=== PATIENT | female | born 1990 | race Caucasian/White ===

== ENCOUNTER 2016-09-18 09:31 | Inpatient (IN) | payer BC ==
[~2016-09-18] VITALS: Ht 160 cm; Wt 64.9 kg
[~2016-09-18 09:31] MED LIST: DPPI400; [UNRECOGNIZED DRUG - OTHER] IM
[2016-09-18 10:41] VITALS: Ht 160 cm; Wt 64.9 kg
[2016-09-18] MEDS ORDERED: PRENTAB26 PO (10:44)
[2016-09-18] MEDS ORDERED: LACTATED RINGER'S 1000ML 1,000 ML IV SCH ×2 (11:00→12:58)
[2016-09-18 11:04] LABS: HEMATOCRIT 36.5 % (37-47); MEAN CELL VOLUME 91.7 fL (80-100); MEAN CORPUSCULAR HEMOGLOBIN 30.7 pg (25-34); MEAN PLATELET VOLUME 10.7 fL (7.4-10.4); PLATELET COUNT 465 K/uL (130-400); RED BLOOD COUNT 3.98 M/uL (4.2-5.4); WHITE BLOOD COUNT 17.29 K/uL (4.8-10.8)
[2016-09-18 11:11] LABS: MEAN CORPUSCULAR HGB CONC 33.4 g/dl (32-36)
[2016-09-18 11:23] LABS: CREATININE, URINE < 13.0 mg/dl; URINE TOTAL PROTEIN 22.5 mg/dl (0-11.9)
[2016-09-18 11:24] LABS: BUN/CREATININE RATIO 12.3 (10-20); CALCIUM 9.1 mg/dl (8.5-10.1); CREATININE 0.6 mg/dl (0.60-1.20); POTASSIUM 4.1 mmol/L (3.5-5.1); URIC ACID 4.2 mg/dl (2.6-7.2)
[2016-09-18 11:30] LABS: ALB/GLOB RATIO 0.8 (0.9-2)
[2016-09-18] MEDS ORDERED: LACTATED RINGER'S 1000ML 1,000 ML IV PRN (12:58)
[2016-09-18] MEDS ORDERED: MISOPROSTOLTAB 50 MCG TAB PO ONE (13:30)
--- NOTE | 2016-09-18 15:16 | HISTORY & PHYSICAL EXAMINATION ---
DATE OF ADMISSION: 09/18/2016 HISTORY OF PRESENT ILLNESS: The patient is a 26-year-old G1, P0, gestational age 39 and 3 weeks, due date 09/22/2016. The patient has had an unremarkable course until today when she was seen for routine care. She had elevated blood pressures of 140s/90's x2. She was therefore sent to labor and delivery for evaluation. On arrival to labor and delivery, she had no shortness of breath, no chills, no fever, no rupture of membranes. She denied any headache or right upper quadrant pain. On arrival initial blood pressures were in the 170s/100s, all in the elevated range. [facility] labs were drawn including CBC and complete chemistry. Hemoglobin was 12.2, hematocrit was 36.5, platelets were 465,000. Complete chemistry showed AST 18, ALT of 22, LDH however was elevated 345. Uric acid was 4.2. Nonstress test was reactive. Vaginal exam is fingertip, 50% and posterior. Bedside ultrasound shows cephalic presentation. I have discussed the above findings with the patient. In the presence of several elevated blood pressures and proteinuria the diagnosis despite normal LFTs is mild preeclampsia. The patient is presently 39 weeks, there is therefore no benefit to continuing with this . I had therefore recommended labor induction. We discussed risks and benefits including the increased risks of section from the induction. We have also discussed the potential risks of poor outcome if she chooses to continue with the including worsening of preeclampsia to the severe range. We have also discussed eclampsia as well as poor outcome for the infant. The patient has agreed to proceed with induction. Plan therefore is to admit patient and start induction of labor. COURSE: Has been unremarkable up to today's visit. LABS: Blood type O positive, antibody negative, rubella immune, GBS negative, VDRL nonreactive. PAST MEDICAL HISTORY: The patient has history of chronic sinusitis and endometritis. PAST SURGICAL HISTORY: None. SOCIAL HISTORY: The patient is a smoker. Denies drug or alcohol use. ALLERGIES: THE PATIENT IS ALLERGIC TO HYDROCODONE AND BACTRIM. FAMILY HISTORY: Noncontributory. 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 PHYSICAL EXAMINATION: GENERAL: Well-developed, well-nourished white female in no acute distress. HEART: S1, S2, regular rhythm and rate. LUNGS: Clear to auscultation bilaterally. ABDOMEN: Gravid, nontender, nondistended. PELVIC EXAMINATION: Fingertip, 50% and -2. Bedside ultrasound shows cephalic presentation. EXTREMITIES: No cyanosis, clubbing or edema. ASSESSMENT AND PLAN: Mild preeclampsia at 39 weeks. Plan is to admit patient and start labor induction. MTDD
[2016-09-18] MEDS ORDERED: MISOPROSTOLTAB 50 MCG TAB PO SCH (19:30)
[2016-09-19] MEDS ORDERED: MISOPROSTOLTAB 50 MCG TAB PO ONE (01:00)
[2016-09-19] MEDS ORDERED: LACTATED RINGER'S 1000ML 500 ML IV PRN ×2 (03:43→05:30)
[2016-09-19] MEDS ORDERED: OXYTOCIN 30 UNITS/500ML NSS IV PRN ×2 (03:45→10:15)
[2016-09-19] MEDS ORDERED: BUPIVACAINE 0.25% 30 ML VIAL ONE (04:30)
[2016-09-19] MEDS ORDERED: EpHEDrine SULFATE INJ 50 MG/ML AMP ONE (04:31)
[2016-09-19] MEDS ORDERED: FENTANYL CITRATE INJ 50 MCG/1 ML 2 ML VIAL ONE (04:31)
[2016-09-19] MEDS ORDERED: FENTANYL 2MCG/ML ROPIV 1.25MG/ML 100ML BAG EPI ONE (04:31)
[2016-09-19] MEDS ORDERED: FENTANYL 2MCG/ML ROPIV 1.25MG/ML 100ML BAG EPI PRN (05:30)
[2016-09-19] MEDS ORDERED: EpHEDrine SULFATE INJ 50 MG/ML AMP IV PRN (05:30)
[2016-09-19] MEDS ORDERED: DiphenhydrAMINE HCL 50 MG/ML VIAL IV PRN (05:30)
[2016-09-19] MEDS ORDERED: NALBUPHINE HCL INJ 10 MG/ML AMP IV PRN (05:30)
[2016-09-19] MEDS ORDERED: ONDANSETRON INJ 2 MG/ML 2 ML VIAL IV PRN (05:30)
[2016-09-19] MEDS ORDERED: NALOXONE HCL INJ 1 MG in SODIUM CHLORIDE 0.9% 1000ML 1,000 ML IV PRN (05:30)
[2016-09-19] MEDS ORDERED: NALOXONE HCL INJ 0.4 MG/1 ML VIAL/CARP IV PRN (05:30)
[2016-09-19] MEDS ORDERED: PROMETHAZINE HCL INJ 6.25 MG in SODIUM CHLORIDE 0.9% 50ML 50 ML IV PRN (05:30)
[2016-09-19 05:42] LABS: HEMATOCRIT 34.7 % (37-47); MEAN CELL VOLUME 92.5 fL (80-100); MEAN CORPUSCULAR HEMOGLOBIN 31.5 pg (25-34); MEAN PLATELET VOLUME 11.2 fL (7.4-10.4); PLATELET COUNT 448 K/uL (130-400); RED BLOOD COUNT 3.75 M/uL (4.2-5.4); WHITE BLOOD COUNT 18.08 K/uL (4.8-10.8)
[2016-09-19 06:11] LABS: BUN/CREATININE RATIO 14.1 (10-20); CALCIUM 8.6 mg/dl (8.5-10.1); CREATININE 0.58 mg/dl (0.60-1.20); POTASSIUM 4.1 mmol/L (3.5-5.1)
[2016-09-19 06:13] LABS: ALB/GLOB RATIO 0.8 (0.9-2)
[2016-09-19] MEDS ORDERED: MISOPROSTOL 200 MCG TAB ONE (07:44)
--- NOTE | 2016-09-19 08:04 | Anesthesia Procedure Note ---
Anesthesia Epidural Removal Nt Date & Time September 19, 2016 at 08:05 Notes Mental Status: alert / awake / arousable, participated in evaluation Nausea / Vomiting: adequately controlled Pain: adequately controlled Airway Patency, RR, SpO2: stable & adequate BP & HR: stable & adequate Hydration State: stable & adequate Neuraxial Anesthesia: was administered Anesthetic Complications: no major complications apparent, pt satisfied with anesthetic care Epidural: removed without complications, with tip intact
[2016-09-19 09:55] VITALS: BP 151/90; PULSE 63; TEMP 36.5
[2016-09-19] MEDS ORDERED: LACTATED RINGER'S 1000ML 1,000 ML IV SCH (10:03)
[2016-09-19] MEDS ORDERED: IBUPROFEN 600 MG TAB ONE (10:03)
[2016-09-19] MEDS ORDERED: BENZOCAINE 20% AER SPR 82.5 GM CAN EXT PRN (10:15)
[2016-09-19] MEDS ORDERED: HYDROCORTISONE ACETATE 25 MG SUPP PR PRN (10:15)
[2016-09-19] MEDS ORDERED: LANOLIN OINT EXT PRN ×2 (10:15)
[2016-09-19] MEDS ORDERED: SUPERCREAM 0.870 % 15GM JAR EXT PRN (10:15)
[2016-09-19] MEDS ORDERED: DIPHTHERIA/TETANUS/PERTUSSIS 0.5 ML SYR/VIAL IM. ONE (10:15)
[2016-09-19] MEDS ORDERED: MEASLES, MUMPS & RUBELLA VIRUS VIAL SQ. ONE (10:15)
[2016-09-19] MEDS ORDERED: MISOPROSTOL 200 MCG TAB PR ONE (10:15)
[2016-09-19 12:05] VITALS: BP 160/86; PULSE 57; TEMP 37.2
[2016-09-19] MEDS: ACETAMINOPHEN 325 MG TAB PO PRN ×2 (12:10→19:40)
[2016-09-19 15:20] VITALS: BP 151/96; PULSE 58; TEMP 37.1
[2016-09-19] MEDS: IBUPROFEN 600 MG TAB PO PRN ×2 (15:36→23:49)
[2016-09-19 18:45] VITALS: BP 193/104; PULSE 58; TEMP 37.4
--- NOTE | 2016-09-19 18:51 | OB/GYN Progress Note ---
SALES REVIEW CLERK Progress Note Date of Service: September 19, 2016. Patient is seen and examined. I was called that her BP's have been elevated She feels well, no complaints. Just tired Ambulating without dizziness Voiding without difficulty Tolerating regular diet with out N&V Bleeding is minimal No OROZCO/ Change in vision/ epigastric or RUQ pain/ fever/ chills/ CP/ SOB/ N&V/ Leg pain Breast feeding without problems Date Time Temp Pulse Resp B/P Pulse Ox O2 Delivery O2 Flow Rate FiO2 09/19/16 15:20 Room Air 09/19/16 15:20 37.1 58 16 151/96 Room Air 09/19/16 12:05 Room Air 09/19/16 12:05 37.2 57 18 160/86 Room Air 09/19/16 09:55 36.5 63 20 151/90 PE: General: Alert, orientedx3, NAD Abd: soft, NT, fundus firm, below Umbilicus Perineum intact, Lochia rubra moderate Ext; NT, no edema, DTR 3+/3+, no clonus AP: 26 yo s/p , IOL for preeclampsia, ppd# 0 Elevated BP, Afebrile doing well clinically Will repeat BP and run blood work Consider treatment with antihypertensives Continue routine care All questions were answered
[2016-09-19] MEDS ORDERED: HydrALAZINE HCL 20 MG/ML VIAL IV. STA (19:00)
--- NOTE | 2016-09-19 19:02 | OB/GYN Progress Note ---
FAMILY LIFE COUNSELOR Progress Note Date of Service: September 19, 2016. Repeat BP: 193/104 Pulse 58 I discussed with hospitalist, recommended hydralazine instead of Labetalol due to low pulse Will give 5 mg push and 10 mg po bid Continue to monitor closely
[2016-09-19 19:08] LABS: BASO % 0.2 %; BASO ABS # 0.05 K/uL (0-0.2); COMPLETE YES; EOS % 0.5 %; HEMATOCRIT 28.7 % (37-47); IG% 0.4 %; LYMPH % 18.5 %; LYMPH ABS # 4.81 K/uL (1.2-3.4); MEAN CELL VOLUME 91.1 fL (80-100); MEAN CORPUSCULAR HEMOGLOBIN 31.1 pg (25-34); MEAN CORPUSCULAR HGB CONC 34.1 g/dl (32-36); MEAN PLATELET VOLUME 10.5 fL (7.4-10.4); MONO % 8.7 %; NEUT % 71.7 %; PLATELET COUNT 375 K/uL (130-400); RED BLOOD COUNT 3.15 M/uL (4.2-5.4); WHITE BLOOD COUNT 25.95 K/uL (4.8-10.8)
[2016-09-19 19:35] LABS: ALT/SGPT 19 U/L (12-78); AST/SGOT 25 U/L (15-37); BLOOD UREA NITROGEN 7 mg/dl (7-18); CALCIUM 8.3 mg/dl (8.5-10.1); CARBON DIOXIDE 25 mmol/L (21-32); CHLORIDE 110 mmol/L (98-107); CREATININE 0.53 mg/dl (0.60-1.20); GLUCOSE 112 mg/dl (70-99); POTASSIUM 3.7 mmol/L (3.5-5.1); SODIUM 141 mmol/L (136-145)
[2016-09-19] MEDS: DOCUSATE SODIUM 100 MG CAP PO SCH (19:39)
[2016-09-19] MEDS: HydrALAZINE 10 MG TAB PO SCH (19:39)
[2016-09-19 19:46] LABS: ALB/GLOB RATIO 0.7 (0.9-2); ALKALINE PHOSPHATASE 75 U/L (45-117)
[2016-09-19 20:55] VITALS: BP 158/100; PULSE 62
[2016-09-19 23:40] VITALS: BP 144/90; PULSE 97; TEMP 37
[2016-09-20] VITALS (7 sets, daily range): BP systolic 147–165; BP diastolic 89–100; PULSE 59–97; TEMP 36.3–37.1; O2SAT 98–99
--- NOTE | 2016-09-20 00:24 | OB/GYN Progress Note ---
ZOO CARETAKER Progress Note Date of Service: September 20, 2016. Late entry from 2129 She feels well, no symptoms Received IV Hydralazine and then po Her repeat BP is stable Blood work WNL Continue to monitor closely May increase dose of hydralazine as needed
[2016-09-20 06:51] LABS: HEMATOCRIT 30.3 % (37-47)
[2016-09-20] MEDS: FERROUS SULFATE 325 MG TAB PO SCH (08:00)
[2016-09-20] MEDS: PRENATAL VITAMIN TAB PO SCH (08:19)
[2016-09-20] MEDS: DOCUSATE SODIUM 100 MG CAP PO SCH ×2 (08:20→20:22)
[2016-09-20] MEDS: HydrALAZINE 10 MG TAB PO SCH ×2 (08:20→20:22)
[2016-09-20] MEDS: IBUPROFEN 600 MG TAB PO PRN ×3 (08:22→20:24)
--- NOTE | 2016-09-20 12:06 | OB/GYN Progress Note ---
HEADING AND PRIMING OPERATOR Progress Note Date of Service September 20, 2016. Subjective conversation w/ patient, physical exam Ambulation: ambulating normally Voiding: no voiding problems Passing Gas: Yes Diet Tolerance: Regular Diet Lochia: Small Feeding Type: Breast Feeding Objective Vital Signs Date Time Temp Pulse Resp B/P Pulse Ox O2 Delivery O2 Flow Rate FiO2 09/20/16 07:50 36.3 59 16 153/93 99 Room Air 09/20/16 07:50 Room Air 09/20/16 04:30 37.1 97 16 148/92 Room Air 09/19/16 23:40 37.0 97 18 144/90 Room Air 09/19/16 23:40 Room Air 09/19/16 20:55 62 158/100 09/19/16 18:45 37.4 58 18 193/104 Room Air 09/19/16 15:20 Room Air 09/19/16 15:20 37.1 58 16 151/96 Room Air Physical Exam General Appearance: WELL-APPEARING, NO APPARENT DISTRESS Abdomen: non tender, soft Fundus: Firm Extremities: non-tender, normal inspection, no pedal edema Laboratory Results Last 24 Hours Test 09/19/16 19:00 09/20/16 06:18 White Blood Count 25.95 K/uL Red Blood Count 3.15 M/uL Hemoglobin 9.8 g/dL 9.9 g/dL Hematocrit 28.7 % 30.3 % Mean Corpuscular Volume 91.1 fL Mean Corpuscular Hemoglobin 31.1 pg Mean Corpuscular Hemoglobin Concent 34.1 g/dl Platelet Count 375 K/uL Mean Platelet Volume 10.5 fL Neutrophils (%) (Auto) 71.7 % Lymphocytes (%) (Auto) 18.5 % Monocytes (%) (Auto) 8.7 % Eosinophils (%) (Auto) 0.5 % Basophils (%) (Auto) 0.2 % Neutrophils # (Auto) 18.60 K/uL Lymphocytes # (Auto) 4.81 K/uL Monocytes # (Auto) 2.25 K/uL Eosinophils # (Auto) 0.13 K/uL Basophils # (Auto) 0.05 K/uL RDW Standard Deviation 44.3 fL RDW Coefficient of Variation 13.3 % Immature Granulocyte % (Auto) 0.4 % Immature Granulocyte # (Auto) 0.11 K/uL Sodium Level 141 mmol/L Potassium Level 3.7 mmol/L Chloride Level 110 mmol/L Carbon Dioxide Level 25 mmol/L Anion Gap 6.0 mmol/L Blood Urea Nitrogen 7 mg/dl Creatinine 0.53 mg/dl Est Creatinine Clear Calc Drug Dose 144.4 ml/min Estimated GFR () > 150.0 Estimated GFR (Non- 130.1 BUN/Creatinine Ratio 13.0 Random Glucose 112 mg/dl Calcium Level 8.3 mg/dl Total Bilirubin 0.2 mg/dl Aspartate Amino Transf (AST/SGOT) 25 U/L Alanine Aminotransferase (ALT/SGPT) 19 U/L Alkaline Phosphatase 75 U/L Lactate Dehydrogenase 255 U/L Total Protein 5.4 gm/dl Albumin 2.3 gm/dl Globulin 3.1 gm/dl Albumin/Globulin Ratio 0.7 Assessment and Plan Post- Day Number: 1 Continue Routine Care: tent d/c in AM
[2016-09-20] MEDS ORDERED: BISACODYL 5 MG TABEC PO SCH (20:00)
[2016-09-21] MEDS: IBUPROFEN 600 MG TAB PO PRN (06:16)
[2016-09-21] MEDS ORDERED: BISACODYL 10 MG SUPP PR PRN (07:00)
[2016-09-21 07:25] VITALS: BP 154/96; PULSE 70; TEMP 37; O2SAT 96
[2016-09-21 07:58] LABS: HEMATOCRIT 30.4 % (37-47); MEAN CELL VOLUME 92.1 fL (80-100); MEAN CORPUSCULAR HEMOGLOBIN 30.9 pg (25-34); MEAN CORPUSCULAR HGB CONC 33.6 g/dl (32-36); MEAN PLATELET VOLUME 10.2 fL (7.4-10.4); PLATELET COUNT 421 K/uL (130-400)
[2016-09-21] MEDS ORDERED: HydrALAZINE 10 MG TAB PO SCH (08:00)
[2016-09-21] MEDS: FERROUS SULFATE 325 MG TAB PO SCH (08:00)
--- NOTE | 2016-09-21 08:00 | OB/GYN Progress Note ---
MEAT PACKER Progress Note Date of Service: September 21, 2016. Patient is seen and examined. She feels " great", no complaints. Ambulating without dizziness Voiding without difficulty Tolerating regular diet with out N&V Bleeding is minimal No OROZCO/ Change in vision/fever/ chills/ CP/ SOB/ N&V/ Leg pain Breast feeding without problems Discussed contraception with patient in details. Abstinence for 6 weeks, progestin only pills, Nexplanon, IUD's, Mirena and Pargard. Not recommend YVONNE due to BP She will decide at 6 weeks pp visit Date Time Temp Pulse Resp B/P Pulse Ox O2 Delivery O2 Flow Rate FiO2 09/20/16 23:25 Room Air 09/20/16 23:25 37.0 69 18 156/91 Room Air 09/20/16 21:45 68 161/100 09/20/16 16:30 159/100 09/20/16 15:15 98 Room Air 09/20/16 15:15 36.6 68 18 165/95 98 Room Air 09/20/16 12:00 37.0 67 16 147/89 99 Room Air Last 24 Hours Test 09/21/16 07:48 White Blood Count 18.50 K/uL Red Blood Count 3.30 M/uL Hemoglobin 10.2 g/dL Hematocrit 30.4 % Mean Corpuscular Volume 92.1 fL Mean Corpuscular Hemoglobin 30.9 pg Mean Corpuscular Hemoglobin Concent 33.6 g/dl RDW Standard Deviation 44.8 fL RDW Coefficient of Variation 13.5 % Platelet Count 421 K/uL Mean Platelet Volume 10.2 fL PE: General: Alert, orientedx3, NAD Abd: soft, NT, fundus firm, below Umbilicus Perineum intact, Lochia rubra minimal Ext; NT, no edema AP: 26 yo s/p , IOL for Preeclampsia ppd# 2 VSS Afebrile doing well BP still elevated with current Hydralazine dose of 10 mg bid, plan to increase to 15 mg bid Continue routine care All questions were answered D/C home after BP check
[2016-09-21] MEDS ORDERED: APR10 PO (08:01)
--- NOTE | 2016-09-21 08:02 | Discharge Instructions ---
Discharge Instructions Date of Service September 21, 2016. Admission Reason for Admission: Prolonged Monitoring - Elevated Blood Pressure Discharge Discharge Diagnosis / Problem: , preeclampsia Discharge Goals Goal(s): Routine recovery after delivery Medications Continue Dispensed Medications: lansinoh Activity Recommendations Activity Limitations: as noted below Lifting Limitations: gradually increase as tolerated Exercise/Sports Limitations: until after follow-up appointment May Resume Sexual Activity: after follow-up appointment Shower/Bathe: no limitations Driving or Machine Use: ACTIVITY RECOMMENDATIONS: * Gradual return to full activity over the next 2-3 weeks. * No lifting - nothing heavier than baby over the next 2-3 weeks. * Do not engage in vigorous exercise, sexual activity or sports until cleared by your physician. * Do not drive or operate any motorized equipment until cleared by your physician. * You may shower/bathe daily. BREAST CARE: If you are not breast feeding: * Wear a supportive bra 24 hours a day for one to two weeks. * Avoid stimulating your breasts and nipples as much as possible during the first few weeks after delivery. * When taking a shower, have the warm water hit your back, not breasts. * When your breasts feel full, apply ice packs. Usually three to four times a day helps ease the discomfort. * Take a mild pain medication (Tylenol/Motrin) when you are uncomfortable. If breast feeding: * Use breast milk to lubricate nipples. Lansinoh cream may be used for sore nipples. You do not need to remove cream prior to breast feeding. If using a different brand of cream, check the label for directions regarding removal of cream prior to nursing. * Wear a supportive bra. * If having problems with breasts or breast feeding, call a websphere commerce consultant or your health care provider. EPISIOTOMY CARE: After delivery, if you have an episiotomy (stitches), the following steps will ease discomfort and aid healing. * For the first 24 hours after delivery, place ice packs next to your episiotomy to help reduce swelling. * After the first 24 hour-period, sitz baths, either portable or in the tub, are suggested. A shower with a shower arm sprayed over the episiotomy may be comforting. * Bonnie care should be done after each voiding and bowel movement. Squirt warm water from a plastic bottle over the perineum (region of the body between the anus and urinary opening) and pat dry. * Use Dermoplast to ease discomfort. Shake container. Anthony directly over the episiotomy. * Place a Tucks on a clean sanitary pad next to your episiotomy. OVER THE COUNTER MEDICATION: * For discomfort or pain, you may use Acetaminophen (Tylenol), Ibuprofen (Advil ), or Naproxen (Aleve) following the package directions. * For constipation you may use Colace following the package directions. SPECIAL CARE INSTRUCTIONS: When you are discharged from the hospital, it is important for you to follow the instructions listed below: * During the first week at home, you should be able to care for yourself and your baby. In addition, the usual light household activities are encouraged. * Limit your activities to the way you feel. Do not try to clean the house or move furniture. Be sensible. * If you actively engage in sports and have done so up until the time of your delivery, you may resume these activities as soon as you feel able. This may take up to one month or even longer. Use good judgment. * Continue to take your vitamins for at least six weeks after the of your baby. * Your diet need not be limited unless you were on a special diet before your delivery. Breast-feeding mothers need around 2500 calories per day and at least 64-80 ounces of fluid per day (8 to 10 glasses). * You should eat foods from the four major food groups. Crash diets or fad diets are to be avoided. Eating lean meats, fresh fruits and vegetables, low-fat dairy products, high fiber foods and a regular exercise program, will help you get back to your pre- weight without putting your health at risk. * Constipation is sometimes a problem after delivery. Take a mild laxative as needed. If breast feeding, Milk of Magnesia is acceptable to use. You may use a suppository or Fleets enema if no episiotomy. * A daily shower or tub bath is suggested. Be sure to thoroughly and gently dry the perineum. * A bloody vaginal discharge will usually continue until around four weeks post . A small amount of bleeding may continue for as long as six weeks. Vaginal discharge changes from the bright red bleeding after delivery to pink then brownish and finally yellowish-pink before becoming white and disappearing. * Bleeding may increase with activity. Your first period may come in 4-8 weeks. If you are breast feeding, your period may be delayed even longer. * [place] (sex) can begin whenever both you and your partner feel comfortable and do not have any form of genital infection. It is recommended that you wait until after your return appointment and discuss with your physician. If you have questions, please talk to your health care practitioner. A condom should be used to prevent infection and . * Foreplay, gentle intercourse and lubrication is very important the first several times to prevent pain. A water-based lubricant such as K-Y jelly or Astroglide may be used. * Tampons may be used six weeks after delivery. * Douching should be avoided for 6 weeks after delivery. * If you have RH negative blood and your baby is RH positive, you will receive RHOGAM by injection prior to discharge. The nurse will give you a card to keep with you that has the date and place that you received RHOGAM after delivery. * During your care, you had a Rubella screen done to check for the presence of rubella antibodies in your blood. If your test was negative, you will receive a Rubella vaccine prior to discharge. This vaccine may cause a fever, soreness at the injection site and flu-like symptoms. If these symptoms persist, notify your health care practitioner. is not advised for three months after a Rubella vaccine. There is a higher chance of having a baby with defects if conceived within three months of getting the vaccine. * If you were discharged 24 hours from delivery or before 48 hours: Visiting nurses will come to your home 48 hours after discharge to assess you and your baby. The visiting nurse will meet with you while you are in the hospital to arrange a time and get directions to your home. * Verbalizes understanding of car seat law as reviewed with patient nursing. * Car Seat hand-out given and reviewed with patient by nursing. * Shaken baby information reviewed with patient by nursing. Call you doctor if: * Heavy bleeding (saturating several pads an hour) or passing clots the size of your fist. * A fever >101 degrees F (38.3 degrees C) on two occasions four hours apart and/or chills. * Unusual pain in the pelvic or vaginal areas. * "Baby Blues" lasting longer than two weeks. If you have any questions or concerns, call your health care practitioner at . FOLLOW-UP VISIT: * Please call the office at to schedule a 6 week examination. It is important you keep this appointment. * It is important for you to make arrangements for either yearly or twice yearly check-ups thereafter. . Current Hospital Diet Patient's current hospital diet: Regular OB Diet Discharge Diet Recommended Diet: Regular Diet Pending Studies Studies pending at discharge: no Medical Emergencies . Who to Call and When: Medical Emergencies: If at any time you feel your situation is an emergency, please call 911 immediately. . Non-Emergent Contact Non-Emergency issues call your: Primary Care Provider, Surgeon Call Non-Emergent contact if: temperature is above 100.5, your pain is not controlled, your pain is worsening . . "Provider Documentation" section prepared by Gopal Gonzalez. . VTE Core Measure Inpt VTE Proph given/why not?: Treatment not indicated
[2016-09-21] MEDS: DOCUSATE SODIUM 100 MG CAP PO SCH (08:13)
[2016-09-21] MEDS: PRENATAL VITAMIN TAB PO SCH (08:14)
[2016-09-21 09:15] VITALS: BP 132/89
[2016-09-21 10:15] VITALS: BP 154/89
[2016-09-21 11:04] VITALS: BP_DIAS 89; PULSE 70; TEMP 37
--- NOTE | 2016-10-06 14:11 | DELIVERY SUMMARY ---
DATE OF OPERATION: 09/19/2016 DELIVERY NOTE DATE OF DELIVERY: 09/19/2016. The patient delivered a live infant female in occiput anterior presentation. There was loose nuchal cord which was easily reduced. Infant was delivered. Cord was clamped and cut and placed on mother's abdomen. Placenta was spontaneously delivered. Inspection of the placenta showed a 3-vessel cord. Placenta appeared grossly normal. Estimated blood loss is 400 mL. Inspection of the perineum showed a 1st degree laceration which was repaired with Vicryl suture. Rectal exam post repair showed good sphincter tone. No sutures are palpated in the rectum. Infant weighed 2446 grams. Apgars 8 and 9. Details of the is in the pediatric record. All instruments are removed from the vagina and accounted for x2 including sponges, needles and retractors. I attest to the content of the Intraoperative Record and any orders documented therein. Any exceptions are noted below. MTDD
== END 2016-09-21 12:05 | disposition home or self-care (01) | DRG 775 ==
LOC: C.LD 09:31 → C.OPB 09:31 → C.LD 13:00 → C.OBG 09-19 10:53 → EDSTATUS 09-21 09:30
PROVIDERS: ADMIT Obstetrics & Gynecology; ATTEND Obstetrics & Gynecology
PROC: 10E0XZZ Delivery of Products of Conception, External Approach (ICD-10-PCS; principal; 2016-09-19)
PROC: 0HQ9XZZ Repair Perineum Skin, External Approach (ICD-10-PCS; principal; 2016-09-19)
DX: O14.04 Mild to moderate pre-eclampsia, complicating childbirth (principal); Z37.0 Single live birth; O70.0 First degree perineal laceration during delivery; O69.81X0 Labor and delivery complicated by cord around neck, without compression, not applicable or unspecified; O99.334 Smoking (tobacco) complicating childbirth; F17.210 Nicotine dependence, cigarettes, uncomplicated; Z3A.39 39 weeks gestation of pregnancy

== ENCOUNTER 2020-11-29 11:37 | Inpatient (IN) ==
[2020-11-29] MEDS ORDERED: OXYTOCIN 30 UNITS/500 ML BAG IV PRN ×2 (14:00→20:12)
[2020-11-29] MEDS ORDERED: LACTATED RINGER'S 1,000 ML IV PRN (14:00)
--- NOTE | 2020-11-29 14:09 | History & Physical Report ---
Date of Service November 29, 2020 Assessment & Plan (1) Uterine contractions at greater than 20 weeks of gestation: Plan: 30-year-old -0-0-1 at 39 weeks of gestation presenting with contractions and cervical change, no signs of symptoms of rupture of membranes, Vital signs stable afebrile, heart rate reassuring, Plan to admit, labs, IV fluids and reevaluate and consider augmentation with Pitocin or AROM. Patient agrees with plan and all questions were answered. History of Present Illness Primary Care Provider: NO PCP Patient is a 30-year-old -0-0-1 at 39 weeks of gestation who felt leakage of fluid last night, it was small and then she woke up with wet underwear. Has been feeling crampy with uterine tightening since this morning and getting worse. She denies vaginal bleeding. She reports good movements. She has been here for about 2 hours and her AmniSure testing was negative and her cervix was 3 cm dated and 30% effaced and posterior. She was having irregular contractions every 2 to 8 minutes. She walked around and came back and her cramping gets worse and contractions are more regular now. Her cervix changed to 4 cm, 60% wi th a bulging tight amniotic bag. She is now being admitted. Her has been complicated by tobacco use during , smokes 1 pack tobacco a day and history of preeclampsia with first . He has no signs of symptoms of preeclampsia during this . Allergies Allergy/AdvReac Type Severity Reaction Status Date / Time hydrocodone Allergy Mild sob, Verified 11/29/20 13:32 nearsyncopal Bactrim AdvReac Mild ANAPHYLAXIS Verified 02/17/11 10:41 sulfamethoxazole [Bactrim] AdvReac Mild ANAPHYLAXIS Verified 11/29/20 13:32 trimethoprim [Bactrim] AdvReac Mild ANAPHYLAXIS Verified 11/29/20 13:32 Home Medications Medication Instructions Recorded Confirmed Type Multivit/Min/Iron/Fol Ac/Pren 1 tab PO DAILY #0 tab 09/18/16 11/29/20 History ( Vitamin) cetirizine 10 mg tablet (Zyrtec) 10 mg PO DAILY PRN 11/29/20 11/29/20 History Patient History Family History Grandfather (Maternal) Hypertension Cancer Social History Smoking Status: Heavy tobacco smoker Cigarettes Per Day: 20; Second Hand Exposure: No; Do You Dip or Chew Tobacco: No; Tobacco Cessation Education Requested by Patient: No Hx Alcohol Use: No Hx Substance Use: No Preferred Language: Syrian marital status: Feels Safe at Home: Yes Safety Concerns: Feels Safe At This Time OB History Full-term in 2017. 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 Review of Systems All systems reviewed & are unremarkable except as noted in HPI & below Physical Exam Constitutional: WD/WN, vitals as above well developed, well nourished and + acute distress (With contractions only) Gastrointestinal (Abdomen): normal bowel sounds, soft, nontender, no hepatosplenomegaly Inspection/Auscultation: + abdomen distended (Gravid) Genitourinary: normal external appearance OB Exam Abdomen: + vertex Manual OB Exam: + cervical dilation 4 cm, + cervical effacement 60% and + station -2 OB Exam Monitor Tracing: + external uterine monitor used and + category I Results & Data ([facility]) Vital Signs (Past 12 Hours) Vital Signs Temp Pulse Resp BP 11/29/20 12:18 77 141/83 H 11/29/20 12:13 36.5 C 77 18 141/83 H Code Status & VTE Plan VTE Prophylaxis Plan VTE Prophylaxis will be ordered: Yes
[2020-11-29 14:35] LABS: Hematocrit (blood only) 34.4 % (37-47); Hemoglobin 11.7 g/dL (12.0-16.0); Mean Corpuscular Hemoglobin 31.2 pg (25-34); Mean Corpuscular Volume 91.7 fL (80-100); Mean Platelet Volume 11.4 fL (7.4-10.4); Platelet Count 491 K/uL (130-400); RDW Standard Deviation 46.2 fL (36.4-46.3); Red Blood Count 3.75 M/uL (4.2-5.4)
[2020-11-29 14:58] LABS: Alanine Aminotransferase 16 U/L (12-78); Albumin Globulin Ratio 0.7 (0.9-2); Albumin Level 2.5 gm/dl (3.4-5.0); Aspartate Aminotransferase 16 U/L (15-37); BUN Creatinine Ratio 11.9 (10-20); Bilirubin,Total 0.3 mg/dl (0.2-1); Blood Urea Nitrogen 6 mg/dl (7-18); Calcium 8.6 mg/dl (8.5-10.1); Carbon Dioxide 20 mmol/L (21-32); Chloride 110 mmol/L (98-107); Creatinine Clr Calc Pharmacy 145.6 ml/min; Est GFR (African American) > 150.0 ml/min; Est GFR (Non-African American) 129.8 ml/min; Globulin 3.8 gm/dl (2.5-4.0); Glucose 73 mg/dl (70-99); Potassium 3.9 mmol/L (3.5-5.1); Sodium 137 mmol/L (136-145); Total Protein 6.3 gm/dl (6.4-8.2)
[2020-11-29 14:59] LABS: Alkaline Phosphatase 133 U/L (45-117)
--- NOTE | 2020-11-29 15:25 | Obstetrical Progress Note ---
Date of Service November 29, 2020 Assessment & Plan Admission and Anticipated Discharge Date Admission Date: November 29, 2020 Subjective Patient is reevaluated. She is hungry and she wants to eat. Bedside ultrasound confirmed vertex presentation and heart rate is 150s. Patient states contractions are milder now and questioning delivery today. She decided not to have any intervention and does not want augmentation with Pitocin nor AROM. She states " what is the reason for rash" Discussed cervical change and contraction pattern. Uterus has irritability mild lower amplitude of frequent contractions and and higher amplitude of contractions every 6 to 10 minutes. Patient states they do not hurt. Recommended observation, IV fluid and diet and then reevaluate. Patient agrees. with Results & Data ([facility]) Vital Signs (Past 12 Hours) Vital Signs Temp Pulse Resp BP 11/29/20 12:18 77 141/83 H 11/29/20 12:13 36.5 C 77 18 141/83 H
--- NOTE | 2020-11-29 16:45 | Obstetrical Progress Note ---
Date of Service November 29, 2020 Assessment & Plan Admission and Anticipated Discharge Date Admission Date: November 29, 2020 Subjective Patient is reevaluated. She ate dinner and feels much better. Her contractions are still coming but mild in intensity. No leakage of fluid or vaginal bleeding. Good movements. She was considering to be discharged tonight and I recommended recheck her cervix. Cervix changed to 5 cm dilated, 70% effaced, with tight bulging bag and -2 station and more central. I recommended to stay since her cervix has been changing and patient agrees. She desires to ambulate and declines Pitocin and AROM. Continue to monitor closely. Results & Data ([facility]) Vital Signs (Past 12 Hours) Vital Signs Temp Pulse Resp BP 11/29/20 12:18 77 141/83 H 11/29/20 12:13 36.5 C 77 18 141/83 H
[2020-11-29] MEDS ORDERED: ePHEDrine sulfate 50 MG/ML AMP ONE (18:31)
[2020-11-29] MEDS ORDERED: SODIUM CHLORIDE 0.9% INJ 10 ML VIAL ONE (18:31)
[2020-11-29] MEDS ORDERED: fentaNYL citrate 100 MCG/2 ML VIAL ONE (18:31)
[2020-11-29] MEDS ORDERED: BUPIVACAINE 0.25% 30 ML VIAL ONE (18:31)
[2020-11-29] MEDS ORDERED: fentaNYL 2MCG/ML ROPIVACAINE 1.25MG/ML 100 ML BAG EPI ONE (18:32)
--- NOTE | 2020-11-29 19:23 | Anesthesiology Consultation ---
Date of Service November 29, 2020 Assessment & Plan Chart Review Chart Review: Acceptable Risk for Labor Epidural Consults Requested none History Height/Weight Height: 5 ft 2 in Weight: 63.503 kg Allergies Allergy/AdvReac Type Severity Reaction Status Date / Time hydrocodone Allergy Mild sob, Verified 11/29/20 13:32 nearsyncopal sulfamethoxazole [Bactrim] AdvReac Mild ANAPHYLAXIS Verified 11/29/20 13:32 trimethoprim [Bactrim] AdvReac Mild ANAPHYLAXIS Verified 11/29/20 13:32 Medications Home Medications Medication Instructions Recorded Confirmed Last Taken Multivit/Min/Iron/Fol Ac/Pren 1 tab PO DAILY #0 tab 09/18/16 11/29/20 Unknown ( Vitamin) loratadine 10 mg tablet (Claritin) 10 mg PO DAILY 11/29/20 11/29/20 11/29/20 09:00 Active Medications Generic Name Dose Route Start Last Admin Trade Name Freq PRN Reason Stop Dose Admin Lactated Ringer's 1,000 mls @ 150 mls/hr 11/29/20 14:00 11/29/20 15:58 Lr IV 12/01/20 13:59 150 mls/hr .[id number] PRN Administration L&D Protocol Protocol Past Medical History Medical History (Updated 11/29/20 @ 17:44 by Oksana Berger RN) Deviated nasal septum Nonallergic rhinitis Preeclampsia Sinusitis Tobacco abuse Past Family History Family History Grandfather (Maternal) Hypertension Cancer Past Surgical History Surgical History (Updated 11/29/20 @ 17:44 by Oksana Berger RN) History of tonsillectomy and adenoidectomy Social History Smoking Status: Heavy tobacco smoker tobacco type: cigarettes Smoking cigarettes per day: 20 Do You Dip or Chew Tobacco: No Hx Alcohol Use: No Hx Substance Use: No substance use type: does not use Physical Exam Vital Signs Last Vital Signs Temp 36.5 C 11/29/20 12:13 Pulse 34 L 11/29/20 19:21 Resp 18 11/29/20 12:13 BP 124/87 11/29/20 19:21 Pulse Ox 96 11/29/20 19:17 Testing Laboratory Results 11/29/20 14:11 11/29/20 14:11
[2020-11-29] MEDS ORDERED: NALOXONE HCL 0.4 MG/1 ML VIAL/CARP IV PRN (19:25)
[2020-11-29] MEDS ORDERED: NALOXONE HCL 1 MG in SODIUM CHLORIDE 0.9% 1000ML 1,000 ML IV PRN (19:25)
[2020-11-29] MEDS ORDERED: diphenhydrAMINE 50 MG/ML VIAL IV PRN (19:25)
[2020-11-29] MEDS ORDERED: ePHEDrine sulfate 50 MG/ML AMP IV PRN (19:25)
[2020-11-29] MEDS ORDERED: fentaNYL 2MCG/ML ROPIVACAINE 1.25MG/ML 100 ML BAG EPI PRN (19:25)
[2020-11-29] MEDS ORDERED: NALBUPHINE HCL INJ 10 MG/ML AMP IV PRN (19:25)
[2020-11-29] MEDS ORDERED: BENZOCAINE 20% AER SPR 82.5 GM CAN EXT PRN (20:12)
[2020-11-29] MEDS ORDERED: HYDROCORTISONE ACETATE 25 MG SUPP PR PRN (20:12)
[2020-11-29] MEDS ORDERED: DIPHTHERIA/TETANUS/PERTUSSIS 0.5 ML SYR/VIAL IM ONE (20:12)
[2020-11-29] MEDS ORDERED: ACETAMINOPHEN 325 MG TAB PO PRN (20:12)
[2020-11-29] MEDS ORDERED: SUPERCREAM 0.870% 15 GM JAR EXT PRN (20:12)
[2020-11-29] MEDS ORDERED: bisacodyL 10 MG SUPP PR PRN (20:12)
[2020-11-29] MEDS ORDERED: MEASLES, MUMPS & RUBELLA VIRUS VIAL SQ ONE (20:12)
[2020-11-29] MEDS ORDERED: IBUPROFEN 600 MG TAB PO ONE (20:36)
--- NOTE | 2020-11-29 21:52 | Anesthesia Procedure Note ---
Date of Service November 29, 2020 Anesthesia Post Epidural Note Vital Signs Vital Signs: Temp Pulse Resp BP Pulse Ox 36.5 C 64 18 140/93 98 11/29/20 21:28 11/29/20 21:29 11/29/20 21:28 11/29/20 21:29 11/29/20 19:57 Pain Intensity Bilateral Lower Abdomen: Pain Intensity: 2 Notes Mental Status: alert / awake / arousable Nausea / Vomiting: adequately controlled Pain: adequately controlled Airway Patency, RR, SpO2: stable & adequate BP & HR: stable & adequate Hydration State: stable & adequate Neuraxial Anesthesia: was administered and sensory block is resolving Anesthetic Complications: no major complications apparent and Pt Satisfied with anesthetic care Epidural: Removed without complications and With tip intact
[2020-11-29] MEDS: DOCUSATE SODIUM 100 MG CAP PO SCH (22:13)
[2020-11-30] MEDS: IBUPROFEN 600 MG TAB PO PRN ×3 (00:18→15:58)
--- NOTE | 2020-11-30 02:57 | Delivery Summary ---
DATE OF DELIVERY: 11/29/2020. TIME: 1925 hours. DETAILS OF DELIVERY: The patient was found to be fully dilated and desired to push. There was a membrane over the head and head was at +3 station. Membranes were ruptured. Clear fluid was obtained. Head was delivered with the second push and then shoulders and whole body came right after. There was a nuchal cord around the neck x1, which was loose and it was reduced. Baby was handed off to the mother where mouth and nose were suctioned. Cord was clamped x2 and cut at 1-minute delay. Baby was vigorously moving and crying. The vagina and perineum were checked for lacerations and they were intact. No lacerations were found. We waited for about half an hour for the placenta. Placenta was found to be in the vagina, delivered spontaneous as intact and complete. Uterus was explored and found to be empty. Lower segment was cleared of all clots and debris. EBL was 200 mL. Fundus was firm. Mom and baby tolerated the procedure well. Sponge, lap, needle, and instrument count was correct x2. Baby was a viable female infant, Apgars 8/9, weight is 2377 gr.. No complications happened and I was present during whole procedure. Job ID: [id number] [facility]
[2020-11-30 06:55] LABS: Hematocrit (blood only) 30.4 % (37-47); Hemoglobin 10.3 g/dL (12.0-16.0); Mean Corpuscular Hemoglobin 31.1 pg (25-34); Mean Corpuscular Hgb Conc 33.9 g/dL (32-36); Mean Corpuscular Volume 91.8 fL (80-100); Mean Platelet Volume 10.9 fL (7.4-10.4); Platelet Count 416 K/uL (130-400); RDW Coefficient of Variation 13.8 % (11.5-14.5); RDW Standard Deviation 45.8 fL (36.4-46.3); Red Blood Count 3.31 M/uL (4.2-5.4)
[2020-11-30] MEDS: DOCUSATE SODIUM 100 MG CAP PO SCH (07:51)
[2020-11-30] MEDS ORDERED: PRENATAL VITAMIN 1 TAB PO SCH (08:00)
[2020-11-30] MEDS ORDERED: FERROUS SULFATE 325 MG TAB PO SCH (08:00)
[2020-11-30] MEDS ORDERED: NICOTINE 7 MG/24 HR TDSY TD SCH (09:00)
--- NOTE | 2020-11-30 09:46 | Progress Note ---
Date of Service November 30, 2020 Assessment & Plan Admission and Anticipated Discharge Date Admission Date: November 29, 2020 Subjective doing well plans to be discharged tonight Physical Exam Constitutional: WD/WN, vitals as above abdomen soft and non-tender fundus firm no edema neg Luis's for d/c tonight Results & Data ([facility]) Vital Signs (Past 12 Hours) Vital Signs Temp Pulse Pulse Pulse Resp BP BP 11/30/20 07:38 36.9 C 70 18 129/86 11/30/20 03:40 36.6 C 54 L 16 139/84 11/29/20 23:22 36.7 C 55 L 16 11/29/20 22:01 55 L 18 134/87 BP Pulse Ox 11/30/20 07:38 97 11/30/20 03:40 95 11/29/20 23:22 135/65 98 11/29/20 22:01 Laboratory Results Laboratory Results - last 72 hr 11/29/20 11/29/20 11/29/20 13:24 14:11 14:11 WBC 15.00 H RBC 3.75 L Hgb 11.7 L Hct 34.4 L MCV 91.7 MCH 31.2 MCHC 34.0 RDW Std Deviation 46.2 RDW Coeff of Penny 14.0 Plt Count 491 H MPV 11.4 H Sodium 137 Potassium 3.9 Chloride 110 H Carbon Dioxide 20 L Anion Gap 7.0 BUN 6 L Creatinine 0.49 L Est Cr Clr Drug Dosing 145.6 Est GFR ( Amer) > 150.0 Est GFR (Non-Af Amer) 129.8 BUN/Creatinine Ratio 11.9 Glucose 73 Calcium 8.6 Total Bilirubin 0.3 AST 16 ALT 16 Alkaline Phosphatase 133 H Total Protein 6.3 L Albumin 2.5 L Globulin 3.8 Albumin/Globulin Ratio 0.7 L Amniotic Protein NEG COVID-19 Eval Order SARS-CoV-2, RNA, NAAT 11/29/20 11/29/20 11/30/20 15:04 15:04 06:24 WBC 25.80 H D RBC 3.31 L Hgb 10.3 L Hct 30.4 L MCV 91.8 MCH 31.1 MCHC 33.9 RDW Std Deviation 45.8 RDW Coeff of Penny 13.8 Plt Count 416 H MPV 10.9 H Sodium Potassium Chloride Carbon Dioxide Anion Gap BUN Creatinine Est Cr Clr Drug Dosing Est GFR ( Amer) Est GFR (Non-Af Amer) BUN/Creatinine Ratio Glucose Calcium Total Bilirubin AST ALT Alkaline Phosphatase Total Protein Albumin Globulin Albumin/Globulin Ratio Amniotic Protein COVID-19 [facility] SARS-[facility]-2, RNA, NAAT NEGATIVE
[2020-11-30] MEDS ORDERED: bisacodyL 5 MG TABEC PO SCH (20:00)
== END 2020-11-30 21:05 | disposition home or self-care (01) | DRG 807 ==
LOC: OPB 11:37 → 4S1 11:44 → 4S2 22:49